=== PATIENT | male | born 1960 | race Caucasian/White ===

== ENCOUNTER 2022-05-23 06:18 | Emergency (ER) | payer MEDICAID ==
[~2022-05-23] VITALS: Ht 177.8 cm; Wt 90.9 kg
[2022-05-23 06:49] LABS: COVID AG,FIA SOURCE NASOPHARYNGEAL
[2022-05-23 07:26] LABS: INFLUENZA TYPE A NEGATIVE FOR TYPE A (NEGATIVE); INFLUENZA TYPE B NEGATIVE FOR TYPE B (NEGATIVE)
[2022-05-23 08:15] VITALS: BP 139/86
== END 2022-05-23 08:55 | disposition home or self-care (01) ==
LOC: EMS 06:21
DX: J06.9 Acute upper respiratory infection, unspecified (principal); Z91.09 Other allergy status, other than to drugs and biological substances; Z20.822 Contact with and (suspected) exposure to COVID-19
CPT/HCPCS: 71045; 87804; 99284

== ENCOUNTER 2025-09-05 23:44 | Emergency (ER) | payer MEDICARE, MEDICAID ==
[~2025-09-05] VITALS: Ht 180.3 cm; Wt 111.4 kg
[2025-09-06] MEDS: KETOROLAC TROMETHAMINE 30 MG/ML VIAL IM ONE (00:27)
[2025-09-06] MEDS: HYDROCODONE/ACETAMINOPHEN 5-325 MG TABLET PO ONE (00:28)
[2025-09-06] MEDS: ACETAMINOPHEN 325 MG TABLET PO ONE (00:28)
[2025-09-06 01:00] VITALS: BP 133/74; PULSE 73; RESP 16; TEMP 98.3; O2SAT 98
[2025-09-06] MEDS ORDERED: HYDR-4072 PO (01:06)
== END 2025-09-06 03:35 | disposition home or self-care (01) ==
LOC: EMS 09-06 00:11
DX: K02.9 Dental caries, unspecified (principal); Z87.891 Personal history of nicotine dependence; Z88.5 Allergy status to narcotic agent
CPT/HCPCS: 99283; 96372; J1885